=== PATIENT | male | born 2000 | race Caucasian/White ===

== ENCOUNTER 2022-03-31 09:37 | Outpatient (CLI) | payer BC | END 2022-03-31 09:38 | disposition home or self-care (01) | LOC: CSHLAB 09:37 | PROVIDERS: ATTEND Internal Medicine | DX: Z20.822 Contact with and (suspected) exposure to COVID-19 (principal) | CPT/HCPCS: 87811 ==

== ENCOUNTER 2022-04-04 10:38 | Outpatient (CLI) | payer BC | END 2022-04-04 10:39 | disposition home or self-care (01) | LOC: CSHCP 10:38 | PROVIDERS: ATTEND Internal Medicine | DX: J45.909 Unspecified asthma, uncomplicated (principal) | CPT/HCPCS: 94060; 94726; 94729; 94760 ==